=== PATIENT | female | born 1955 | race Caucasian/White ===

== ENCOUNTER 2017-05-26 09:43 | Day surgery (SDC) | payer OTHER ==
[~2017-05-26] VITALS: Ht 170.2 cm; Wt 86.2 kg
[~2017-05-26 09:43] MED LIST: CALCIUM600 M1 PO; FISH OIL1000 MG PO; MULTIVITAMIN WO1 TA1 PO; PRILOSEC20 MG PO; ZETIA10 MG PO
[2017-05-26 11:50] VITALS: BP 137/93
== END 2017-05-26 11:56 | disposition home or self-care (01) | DRG 951 ==
LOC: ENDO 09:43 → ORM 14:00 → ENDO 14:20
PROVIDERS: ATTEND Internal Medicine Gastroenterology
PROC: 0DJD8ZZ Inspection of Lower Intestinal Tract, Via Natural or Artificial Opening Endoscopic (ICD-10-PCS; principal; 2017-05-26)
DX: Z12.11 Encounter for screening for malignant neoplasm of colon (principal); D17.5 Benign lipomatous neoplasm of intra-abdominal organs; K64.4 Residual hemorrhoidal skin tags; K57.30 Diverticulosis of large intestine without perforation or abscess without bleeding; K64.8 Other hemorrhoids; E78.00 Pure hypercholesterolemia, unspecified; K21.9 Gastro-esophageal reflux disease without esophagitis; Z86.010 Personal history of colon polyps; Z80.0 Family history of malignant neoplasm of digestive organs